=== PATIENT | male | born 1975 | race Two or more races ===

== ENCOUNTER 2021-09-01 22:02 | Emergency (ER) | payer OTHER ==
[~2021-09-01] VITALS: Ht 177.8 cm; Wt 95.3 kg
[2021-09-02] MEDS ORDERED: LIDOCAINE HCL 5 % TOP OINT 35 GM TOP ONE (02:00)
[2021-09-02] MEDS ORDERED: LIDOCAINE HCL 2% TOP JELLY 5ML TOP ONE (02:00)
[2021-09-02 03:05] VITALS: BP 182/107
== END 2021-09-02 04:08 | disposition home or self-care (01) ==
LOC: EDBD 22:05 → ER 22:05
DX: N47.2 Paraphimosis (principal); N48.89 Other specified disorders of penis; E66.9 Obesity, unspecified; Z68.30 Body mass index [BMI] 30.0-30.9, adult; E11.9 Type 2 diabetes mellitus without complications
CPT/HCPCS: 54450